=== PATIENT | female | born 1975 | race African-American/Black ===

== ENCOUNTER 2019-03-18 02:25 | Emergency (ER) | payer MEDICAID ==
[~2019-03-18] VITALS: Ht 160 cm; Wt 100.0 kg
[~2019-03-18 02:25] MED LIST: ADVIL; SEROQUEL; VICODIN; XANAX; [UNRECOGNIZED DRUG - OTHER]
[2019-03-18] MEDS ORDERED: TETANUS, DIPHTHERIA, PERTUSSIS VAC/PF 0.5ML (>7YR OLD) IM ONE (05:00)
[2019-03-18] MEDS ORDERED: BACITRACIN ZINC OINT UDPKT TOP ONE (05:00)
[2019-03-18] MEDS ORDERED: HYDROCODONE/ACETAMINOPHEN 5/325MG TABLET PO ONE (05:00)
[2019-03-18] MEDS ORDERED: LIDOCAINE HCL/PF 1% 10 MG/ML 5ML VIAL IJ ONE ×2 (05:00→06:00)
[2019-03-18 05:24] VITALS: BP 148/93
[2019-03-18] MEDS ORDERED: BACITRACIN 15GM TUBE TOP NR (05:45)
== END 2019-03-18 09:30 | disposition home or self-care (01) ==
LOC: ER 02:25
DX: S20.212A Contusion of left front wall of thorax, initial encounter (principal); S51.812A Laceration without foreign body of left forearm, initial encounter; S40.012A Contusion of left shoulder, initial encounter; M25.522 Pain in left elbow; Y07.59 Other non-family member, perpetrator of maltreatment and neglect; X99.8XXA Assault by other sharp object, initial encounter; R03.0 Elevated blood-pressure reading, without diagnosis of hypertension; W10.9XXA Fall (on) (from) unspecified stairs and steps, initial encounter; Y93.89 Activity, other specified; Y92.89 Other specified places as the place of occurrence of the external cause
CPT/HCPCS: 12001; 71045; 73030; 73060; 73080; 73090; 90471; 90715; 99283; J3490; Z7610